=== PATIENT | female | born 1955 | race Caucasian/White ===

== ENCOUNTER 2016-09-17 10:11 | Outpatient (CLI) | payer BC ==
[2016-09-17 11:18] LABS: #Basophils 0.1 thou/uL (0.0-0.2); #Eosinphils 0.2 thou/uL (0.0-0.7); #Lymphocytes 1.5 thou/uL (1.20-3.40); #Monocytes 0.6 thou/uL (0.11-0.59); #Neutrophils 2.6 thou/uL (1.40-6.50); %Basophils 1.4 % (0.0-1.0); %Eosinophils 4.6 % (0.0-10.0); %Monocytes 11.5 % (0.0-10.0); Hematocrit 42.9 % (36.0-47.0); Mean Platelet Volume 7.1 fL (7.4-10.4); Red Blood Cell (RBC) Count 4.67 mill/uL (4.20-5.40)
[2016-09-17 11:33] LABS: Hemoglobin A1c 5.5 % (4.0-6.0)
[2016-09-17 12:04] LABS: ALT (SGPT) 35 U/L (0-55); AST (SGOT) 29 U/L (5-34); Alkaline Phosphatase 116 U/L (40-150); Anion Gap 14 mmol/L (10-20); BUN (Urea Nitrogen) 11 mg/dL (9.8-20.1); Bilirubin, Total 0.9 mg/dL (0.2-1.2); Calc. Creatinine Clearance 0 mL/min (70-130); Calcium 9.4 mg/dL (7.8-10.44); Carbon Dioxide 23 mmol/L (23-31); Chloride 108 mmol/L (98-107); Estimated GFR-MDRD 78; Globulin 2.7 g/dL (2.4-3.5); LDL Cholesterol, Calculated 146 mg/dL; Protein, Total 6.9 g/dL (5.8-8.1)
== END 2016-09-17 10:12 | disposition home or self-care (01) ==
LOC: HPCALD 10:11
PROVIDERS: ATTEND Family Medicine
DX: Z01.419 Encounter for gynecological examination (general) (routine) without abnormal findings (principal); Z13.6 Encounter for screening for cardiovascular disorders; R73.01 Impaired fasting glucose
CPT/HCPCS: 36415; 80053; 80061; 83036; 85025

== ENCOUNTER 2016-09-19 16:51 | Outpatient (CLI) | payer BC | END 2016-09-19 16:52 | disposition home or self-care (01) | LOC: HPCALD 16:51 | PROVIDERS: ATTEND Family Medicine | DX: Z01.419 Encounter for gynecological examination (general) (routine) without abnormal findings (principal) ==

== ENCOUNTER 2017-07-17 17:33 | Emergency (ER) | payer BC ==
[2017-07-17] MEDS ORDERED: Thiamine HCl 200 MG/2 ML VIAL ONE (17:56)
[2017-07-17 18:04] LABS: INR-International Normal Ratio 0.8; PTT 24.3 SEC (22.9-36.1); Prothrombin Time 11.5 SEC (12.0-14.7)
[2017-07-17 18:05] LABS: #Basophils 0.1 thou/uL (0.0-0.2); #Eosinphils 0.5 thou/uL (0.0-0.7); #Lymphocytes 1.8 thou/uL (1.20-3.40); #Monocytes 0.8 thou/uL (0.11-0.59); #Neutrophils 3.4 thou/uL (1.40-6.50); %Eosinophils 7.1 % (0.0-10.0); %Lymphocytes 27.3 % (21.0-51.0); %Monocytes 11.4 % (0.0-10.0); %Neutrophils 52.2 % (42.0-75.0); Hemoglobin 15.4 g/dL (12.0-16.0); Mean Corpuscular HGB CONC 34.5 g/dL (32.0-36.0); Mean Corpuscular Hemoglobin 31.5 pg (27.0-31.0); Mean Corpuscular Volume 91.5 fl (81.0-99.0); Mean Platelet Volume 7.6 fL (7.4-10.4); Platelet Count 309 thou/uL (130-400); RBC Distribution Width 11.3 % (11.5-14.5); Red Blood Cell (RBC) Count 4.87 mill/uL (4.20-5.40); White Blood Cell (WBC) Count 6.5 thou/uL (4.8-10.8)
[2017-07-17] MEDS ORDERED: Metoprolol Tartrate 5 MG/5 ML VIAL ONE (18:24)
[2017-07-17 18:32] LABS: Bilirubin Negative (Negative); Blood, Urine Trace (Negative); Clarity Clear (Clear); Glucose, Urine (Dipstick) Negative (Negative); Leukocyte Moderate (Negative); Nitrite Negative (Negative); Protein, Urine (Dipstick) Negative (Neg-Trace); Urobilinogen 0.2 mg/dL (0.2-1.0)
[2017-07-17 18:34] LABS: Specific Gravity, Urine 1.004 (1.005-1.030)
[2017-07-17 18:36] LABS: Bacteria/HPF Rare-Few HPF (None Seen); RBC/HPF 0-3 HPF (0-3); Squamous Epithelial 0-3 HPF (0-3); WBC/HPF 0-3 HPF (0-3)
[2017-07-17 18:47] LABS: ALT (SGPT) 46 U/L (8-55); AST (SGOT) 46 U/L (5-34); Albumin 4.2 g/dL (3.4-4.8); Alcohol Less than 10 mg/dL (Less than 10); Alkaline Phosphatase 153 U/L (40-150); Anion Gap 16 mmol/L (10-20); BUN (Urea Nitrogen) 12 mg/dL (9.8-20.1); Bilirubin, Total 0.5 mg/dL (0.2-1.2); Calc. Creatinine Clearance 0 mL/min (70-130); Calcium 9.8 mg/dL (7.8-10.44); Carbon Dioxide 24 mmol/L (23-31); Chloride 104 mmol/L (98-107); Estimated GFR-MDRD 68; Globulin 3.3 g/dL (2.4-3.5); Glucose 121 mg/dL (80-115); Potassium 5.2 mmol/L (3.5-5.1); Protein, Total 7.5 g/dL (6.0-8.3); Sodium 139 mmol/L (136-145)
[2017-07-17 19:12] LABS: Amphetamine Not Detected (NotDetected); Barbiturates Screen Not Detected (NotDetected); Benzodiazepine Screen Not Detected (NotDetected); Cocaine Metabolite Screen Not Detected (NotDetected); Medtox Control Line Valid? VALID (VALID); Methadone Not Detected (NotDetected); Methamphetamine Not Detected (NotDetected); Opiate Screen Not Detected (NotDetected); Oxycodone Screen Not Detected (NotDetected); Phencyclidine (PCP) Not Detected (NotDetected); THC/Cannabinoid Screen Not Detected (NotDetected); Tricyclic Screen Not Detected (NotDetected)
--- NOTE | 2017-07-17 22:55 | RAD ---
CHEST TWO VIEWS 07/17/17 The heart is normal in size and the lung are clear. No infiltrate or effusion was seen. No pulmonary masses, edema, or other acute change. Was detected. Some mild degenerative changes are see in the spi ne. The bones are osteopenic. IMPRESSION: No acute finding. POS: HOME
--- NOTE | 2017-07-17 23:02 | CT ---
CT OF THE BRAIN WITHOUT CONTRAST 07/17/[address] was performed for evaluation of headache and some left sided numbness. I understand that there are some visual deficits as well. There is a low density area in the medial portion of the right occipital lobe. This most likely repre sents a stroke, but the age is indetermined. One would expect a left homonymous hemianopsia from such a lesion. I cannot really appreciate mass effect to think that this is a low density mass. MRI would show it and characterize its age much better. There are some patchy low density areas in the deep wh ite matter, more so in the left posterior frontal region. Of course this would not sit with left side d numbness. Fluid is most likely just chronic ischemic change. There is no bleeding. The ventricular sizes are normal. The calvarium appears normal and the visible paranasal sinuses are clear. IMPRESSION: 1. Mild chronic ischemic changes throughout the deep white matter, left more so than right. 2. Low density area in the medial right occipital lobe that is most likely stroke, age indetermi kvng. MRI would be useful to characterize this better, as well as date whether this is a new or old f inding. POS: HOME
== END 2017-07-17 19:10 | disposition short-term general hospital (02) ==
LOC: BURERS 17:33
DX: I63.9 Cerebral infarction, unspecified (principal); I16.0 Hypertensive urgency; J44.9 Chronic obstructive pulmonary disease, unspecified; F17.200 Nicotine dependence, unspecified, uncomplicated; Z85.3 Personal history of malignant neoplasm of breast; Z79.899 Other long term (current) drug therapy
CPT/HCPCS: 70450; 71046; 80053; 80306; 80307; 81003; 81015; 85025; 85610; 85730; 93005; 94760; 96361; 96374; 96375; J3411